=== PATIENT | male | born 1985 | race Asian ===

== ENCOUNTER 2023-02-22 08:25 | Emergency (ER) | payer OTHER ==
[~2023-02-22] VITALS: Ht 182.9 cm; Wt 81.6 kg
[2023-02-22 08:49] VITALS: BP_SYST 116
--- NOTE | 2023-02-22 08:50 | NUR ---
Patient to ER bed 03 to gown for evaluation. Side rails up. Report given to MAURICIO PIMENTEL.
--- NOTE | 2023-02-22 08:59 | NUR ---
Pt brought in by self from home. Chief complaint of right eye pinkness with swelling and drainage. Pt states itchiness and irritation to right eye.
--- NOTE | 2023-02-22 09:10 | NUR ---
at bedside, Eye kit provided.
[2023-02-22] MEDS ORDERED: IBUP-1971 PO (09:18)
[2023-02-22] MEDS ORDERED: OFLO5DRO6 EACH EYE (09:18)
[2023-02-22] MEDS ORDERED: TETRACAINE HCL/PF 0.5% OPHTHALMIC DROPS 4 ML OP ONE (09:30)
[2023-02-22] MEDS ORDERED: BALANCED SALT IRRIG SOLN 15 ML IO ONE (09:30)
[2023-02-22] MEDS ORDERED: FLUORESCEIN SODIUM 1 MG OPHTHALMIC STRIP OP ONE ×2 (09:30→10:30)
--- NOTE | 2023-02-22 09:40 | NUR ---
MAURICIO Leonard performed visual accuity
--- NOTE | 2023-02-22 09:57 | NUR ---
Patient given written and verbal discharge instructions and verbalizes understanding. ER MD Posey discussed with patient the results and treatment provided. Patient in stable condition. ID arm band removed. Rx of Ibuprofen and Ofloxacin sent to pharmacy on file. Patient educated on pain management and to follow up with PMD. Opportunity for questions provided and answered. Patient discharged a&ox4 walking on his own. Stable.
[2023-02-22] MEDS ORDERED: PROPARACAINE (OPTHANINE 0.5%) 15 ML DROPS OP ONE (10:30)
== END 2023-02-22 09:57 | disposition home or self-care (01) ==
LOC: SED 08:25
DX: H10.89 Other conjunctivitis (principal); H57.89 Other specified disorders of eye and adnexa; H53.141 Visual discomfort, right eye; Z79.899 Other long term (current) drug therapy
CPT/HCPCS: 99283